=== PATIENT | male | born 1975 | race Caucasian/White ===

== ENCOUNTER 2019-10-11 10:23 | Emergency (ER) | payer OTHER ==
[~2019-10-11] VITALS: Ht 175.3 cm; Wt 100.2 kg
[2019-10-11 10:30] VITALS: BP 144/86; Ht 175.3 cm; Wt 100.2 kg
== END 2019-10-11 10:56 | disposition home or self-care (01) ==
LOC: ED 10:23
DX: Z11.59 Encounter for screening for other viral diseases (principal)